=== PATIENT | male | born 1950 | race Caucasian/White ===

== ENCOUNTER 2018-01-18 16:56 | Emergency (ER) | payer MEDICARE, MEDICAID ==
[~2018-01-18] VITALS: Ht 180.3 cm; Wt 99.0 kg
[~2018-01-18 16:56] MED LIST: AMIT-106 PO; ASPI-1053 PO; CARV6.253 PO; DOXE25CA4 PO; HYDR-3972 PO; ICOS1CAP PO; METF-436 PO; ROSU20TA PO; TICA90TA2 PO
[2018-01-18] MEDS ORDERED: SULF1TAB49 PO (19:36)
[2018-01-18 19:44] VITALS: BP 125/85
== END 2018-01-18 19:45 | disposition home or self-care (01) ==
LOC: ER 16:56
DX: L08.9 Local infection of the skin and subcutaneous tissue, unspecified (principal); E11.42 Type 2 diabetes mellitus with diabetic polyneuropathy; I10 Essential (primary) hypertension; J44.9 Chronic obstructive pulmonary disease, unspecified; M19.90 Unspecified osteoarthritis, unspecified site; F12.90 Cannabis use, unspecified, uncomplicated; Z79.82 Long term (current) use of aspirin; Z98.890 Other specified postprocedural states; Z79.84 Long term (current) use of oral hypoglycemic drugs; Z79.899 Other long term (current) drug therapy
CPT/HCPCS: 99283

== ENCOUNTER 2018-10-09 16:01 | Emergency (ER) | payer MEDICARE, MEDICAID ==
[~2018-10-09] VITALS: Ht 182.9 cm; Wt 100.0 kg
[~2018-10-09 16:01] MED LIST changes: -ROSU20TA PO; +ROSU20TA2 PO
[2018-10-09 16:09] VITALS: BP 130/80
[2018-10-09 16:42] LABS: BASOPHILS # (AUTO) 0.1 X10'3 (0-0.2); BASOPHILS % (AUTO) 1.3 % (0-1); EOSINOPHILS # (AUTO) 0.3 X10'3 (0-0.9); HEMATOCRIT 40.7 % (42.0-52.0); LYMPHOCYTES % (AUTO) 16.5 % (21-51); MEAN CORPUSCULAR HEMOGLOBIN 33.3 PG (27.0-31.0); MEAN CORPUSCULAR HGB CONC 34.4 g/dL (33.0-36.5); MEAN CORPUSCULAR VOLUME 96.8 FL (78-98); MEAN PLATELET VOLUME 7.8 FL (7.4-10.4); MONOCYTES # (AUTO) 0.6 X10'3 (0-0.9); MONOCYTES % (AUTO) 10.6 % (2-12); NEUTROPHILS % (AUTO) 66.6 % (42-75); PLATELET COUNT 219 X10'3 (140-440); RED BLOOD COUNT 4.21 X10'6 (4.70-6.10); RED CELL DISTRIBUTION WIDTH 12.9 % (11.5-14.5)
[2018-10-09 16:55] LABS: PARTIAL THROMBOPLASTIN TIME 27 SECONDS (22-32); PROTHROMBIN TIME 10.6 SECONDS (9.0-12.0)
[2018-10-09 16:58] LABS: ALANINE AMINOTRANSFERASE 18 U/L (12-78); ALBUMIN 3.4 G/DL (3.4-5.0); ALBUMIN/GLOBULIN RATIO 0.9 (1.1-1.5); ALKALINE PHOSPHATASE 139 IU/L (46-116); ANION GAP 8 (8-16); ASPARTATE AMINO TRANSFERASE 14 U/L (10-37); BILIRUBIN,TOTAL 0.6 MG/DL (0.1-1.0); BLOOD UREA NITROGEN 21 MG/DL (7-18); BUN/CREATININE RATIO 29.6 (5.4-32.0); CALCIUM 9.3 MG/DL (8.5-10.1); CHLORIDE 104 MMOL/L (99-107); CREATININE 0.71 MG/DL (0.60-1.10); GLUCOSE 186 MG/DL (70-104); POTASSIUM 4.2 MMOL/L (3.5-5.1); SODIUM 138 MMOL/L (135-145); TOTAL CARBON DIOXIDE 25.6 MMOL/L (24-32); TOTAL PROTEIN 7.1 G/DL (6.4-8.2); eGFR > 90 ML/MIN
[2018-10-09] MEDS ORDERED: DOXY100C43 PO (17:12)
[2018-10-09] MEDS ORDERED: METH4TAB81 PO (17:12)
== END 2018-10-09 17:37 | disposition home or self-care (01) ==
LOC: ER 16:02
DX: J44.1 Chronic obstructive pulmonary disease with (acute) exacerbation (principal); I10 Essential (primary) hypertension; E11.42 Type 2 diabetes mellitus with diabetic polyneuropathy; M19.90 Unspecified osteoarthritis, unspecified site; F12.90 Cannabis use, unspecified, uncomplicated; Z79.82 Long term (current) use of aspirin
CPT/HCPCS: 36415; 71045; 80053; 84484; 85025; 85610; 85730; 93005; 99284

== ENCOUNTER 2019-05-01 14:52 | Emergency (ER) | payer MEDICARE, MEDICAID ==
[~2019-05-01] VITALS: Ht 182.9 cm; Wt 106.8 kg
[~2019-05-01 14:52] MED LIST changes: -AMIT-106 PO; +AMIT25TA9 PO; +METH4TAB81 PO
[2019-05-01 14:59] VITALS: BP 113/80
[2019-05-01 15:54] LABS: CLARITY,URINE CLEAR (Clear); COLOR,URINE YELLOW (Yellow); GLUCOSE, URINE 100 mg/dl (Neg); KETONES,URINE NEGATIVE (Neg); LEUKOCYTE ESTERASE ,URINE NEGATIVE (Neg); NITRITES, URINE NEGATIVE (Neg); OCCULT BLOOD,URINE NEGATIVE (Neg); PH,URINE 5.5 (4.8-8.0); PROTEIN,URINE NEGATIVE (Neg)
[2019-05-01 16:04] LABS: UA COLLECTION TYPE CLN CATCH MIDSTREAM
[2019-05-01] MEDS ORDERED: ketorolac tromethamine 15mg/ml inj. IM ONE (16:20)
== END 2019-05-01 18:25 | disposition home or self-care (01) ==
LOC: ER 14:52
DX: M54.5 Low back pain (principal); I25.10 Atherosclerotic heart disease of native coronary artery without angina pectoris; I10 Essential (primary) hypertension; J44.9 Chronic obstructive pulmonary disease, unspecified; M19.90 Unspecified osteoarthritis, unspecified site; F12.90 Cannabis use, unspecified, uncomplicated; E11.42 Type 2 diabetes mellitus with diabetic polyneuropathy; Z98.890 Other specified postprocedural states; Z79.82 Long term (current) use of aspirin; Z79.899 Other long term (current) drug therapy
CPT/HCPCS: 74176; 81003; 96372; 99284; J1885

== ENCOUNTER 2022-04-27 11:12 | Emergency (ER) | payer MEDICARE, MEDICAID ==
[~2022-04-27] VITALS: Ht 177.8 cm; Wt 118.2 kg
[2022-04-27 12:07] VITALS: BP 159/94
== END 2022-04-27 16:03 | disposition home or self-care (01) ==
LOC: ER 11:12
DX: R05.9 Cough, unspecified (principal); Z20.822 Contact with and (suspected) exposure to COVID-19; R07.89 Other chest pain; R06.02 Shortness of breath; E11.42 Type 2 diabetes mellitus with diabetic polyneuropathy; I25.10 Atherosclerotic heart disease of native coronary artery without angina pectoris; I10 Essential (primary) hypertension; J44.9 Chronic obstructive pulmonary disease, unspecified; M19.90 Unspecified osteoarthritis, unspecified site; F41.9 Anxiety disorder, unspecified; F12.90 Cannabis use, unspecified, uncomplicated; Z72.89 Other problems related to lifestyle; Z98.890 Other specified postprocedural states; Z79.82 Long term (current) use of aspirin; Z79.899 Other long term (current) drug therapy
CPT/HCPCS: 36415; 71046; 87635; 99284; C9803

== ENCOUNTER 2023-02-05 03:12 | Emergency (ER) | payer BC, MEDICAID ==
[~2023-02-05] VITALS: Ht 177.8 cm; Wt 96.0 kg
[2023-02-05 03:31] VITALS: TEMP 98
[2023-02-05] MEDS ORDERED: LIDOcaine 1% W/epiNEPHrine 1:100,000 20ml vial IJ ONE (03:45)
[2023-02-05] MEDS ORDERED: ALBU18HF2 PO (03:49)
[2023-02-05] MEDS ORDERED: DULA0.75 SQ (03:49)
[2023-02-05] MEDS ORDERED: FLUT16SP26 (03:49)
[2023-02-05] MEDS ORDERED: FEXO-310 PO (03:49)
[2023-02-05] MEDS ORDERED: MONT-40 PO (03:49)
[2023-02-05] MEDS ORDERED: ketorolac trometh inj. 60 MG/2 ML VIAL IM ONE (03:50)
[2023-02-05] MEDS ORDERED: acetaminophen 325mg tablet PO ONE (03:50)
[2023-02-05 04:19] VITALS: BP 155/90; PULSE 70; RESP 18; O2SAT 98
== END 2023-02-05 04:21 | disposition home or self-care (01) ==
LOC: ER 03:13
DX: M43.6 Torticollis (principal)
CPT/HCPCS: 20552; 96372; 99284; J1885

== ENCOUNTER 2023-06-22 02:43 | Emergency (ER) | payer BC, MEDICAID ==
[~2023-06-22] VITALS: Ht 182.9 cm; Wt 85.5 kg
[~2023-06-22 02:43] MED LIST changes: +ALBU18HF2 PO; -AMIT25TA9 PO; -DOXE25CA4 PO; +DULA0.75 SQ; +FEXO-310 PO; +FLUT16SP26; -HYDR-3972 PO; -METH4TAB81 PO; +MONT-40 PO
[2023-06-22 02:44] VITALS: BP 143/85; PULSE 77; TEMP 97.9; O2SAT 99
[2023-06-22] MEDS ORDERED: ketorolac trometh inj. 60 MG/2 ML VIAL IM ONE (03:15)
[2023-06-22] MEDS ORDERED: acetaminophen 325mg tablet PO ONE (03:15)
[2023-06-22] MEDS ORDERED: IBUP-1984 PO (03:24)
[2023-06-22] MEDS ORDERED: ACET-1025 PO (03:24)
[2023-06-22 03:44] VITALS: RESP 18
== END 2023-06-22 03:46 | disposition home or self-care (01) ==
LOC: ER 02:43
DX: M43.6 Torticollis (principal); I11.0 Hypertensive heart disease with heart failure; J44.9 Chronic obstructive pulmonary disease, unspecified; E11.9 Type 2 diabetes mellitus without complications; F41.9 Anxiety disorder, unspecified; Z79.899 Other long term (current) drug therapy
CPT/HCPCS: 96372; 99283; J1885

== ENCOUNTER 2023-08-03 08:13 | Day surgery (SDC) | payer BC, MEDICAID ==
[2023-07-28 14:16] LABS: BASOPHILS % (AUTO) 0.6 % (0-1); EOSINOPHILS # (AUTO) 0.2 X10'3 (0-0.9); EOSINOPHILS % (AUTO) 2.8 % (0-6); LYMPHOCYTES # (AUTO) 1.1 X10'3 (1.1-4.8); LYMPHOCYTES % (AUTO) 18.6 % (21-51); MEAN CORPUSCULAR HEMOGLOBIN 33.9 PG (27.0-31.0); MEAN CORPUSCULAR HGB CONC 33.7 g/dL (33.0-36.5); MEAN CORPUSCULAR VOLUME 100.6 FL (78-98); MEAN PLATELET VOLUME 8.2 FL (7.4-10.4); MONOCYTES # (AUTO) 0.6 X10'3 (0-0.9); MONOCYTES % (AUTO) 10.3 % (2-12); NEUTROPHILS # (AUTO) 4.1 X10'3 (1.8-7.7); NEUTROPHILS % (AUTO) 67.7 % (42-75); PRE OP HEMATOCRIT 41.5 % (42.0-52.0); PRE OP PLATELET COUNT 162 X10'3 (140-440); PRE OP WHITE BLOOD COUNT 6.1 10'3 (4.8-10.8); RED BLOOD COUNT 4.12 X10'6 (4.70-6.10); RED CELL DISTRIBUTION WIDTH 12.9 % (11.5-14.5)
[2023-07-28 14:24] LABS: BILIRUBIN,URINE NEGATIVE (Neg); CLARITY,URINE CLEAR (Clear); COLOR,URINE YELLOW (Yellow); GLUCOSE, URINE NEGATIVE (Neg); KETONES,URINE NEGATIVE (Neg); LEUKOCYTE ESTERASE ,URINE NEGATIVE (Neg); NITRITES, URINE NEGATIVE (Neg); OCCULT BLOOD,URINE NEGATIVE (Neg); PROTEIN,URINE NEGATIVE (Neg); UROBILINOGEN,URINE 0.2 E.U/dL (0.2-1.0)
[2023-07-28 14:27] LABS: PRE OP PROTIME 11.1 SECONDS (9.0-12.0)
[2023-07-28 14:28] LABS: ALBUMIN 3.6 G/DL (3.4-5.0); ALBUMIN/GLOBULIN RATIO 0.9 (1.1-1.5); ALKALINE PHOSPHATASE 96 IU/L (46-116); BLOOD UREA NITROGEN 16 MG/DL (7-18); BUN/CREATININE RATIO 23.2 (10.0-20.0); CALCIUM 9.6 MG/DL (8.5-10.1); CHLORIDE 101 MMOL/L (99-107); CREATININE 0.69 MG/DL (0.60-1.10); PRE OP ALT 23 U/L (30-65); PRE OP ANION GAP 8 (8-16); PRE OP AST 27 U/L (10-37); PRE OP BILIRUB, TOTAL 0.5 MG/DL (0.0-1.0); PRE OP GLUCOSE 79 MG/DL (70-104); PRE OP POTASSIUM 4.1 MMOL/L (3.4-5.1); PRE OP SODIUM 140 MMOL/L (135-145); TOTAL CARBON DIOXIDE 31.5 MMOL/L (24-32); TOTAL PROTEIN 7.5 G/DL (6.4-8.2); eGFR > 90 ML/MIN
[2023-07-28 14:34] LABS: UA COLLECTION TYPE CLN CATCH MIDSTREAM
[2023-07-28 14:45] LABS: HEMOGLOBIN A1C 5.6 % (4.5-6.2)
[2023-08-03] VITALS (28 sets, daily range): BP systolic 72–146; BP diastolic 51–100; PULSE 67–92; RESP 12–21; TEMP 97.6–99.8; O2SAT 89–98
[~2023-08-03] VITALS: Ht 180.3 cm; Wt 81.7 kg
[~2023-08-03 08:13] MED LIST changes: +BUDE10.2 INH; +CARV3.122 PO; -CARV6.253 PO; +DOCUMENT DATE & TIME OF BETA-BLOCKER PO ONE; -FEXO-310 PO; -FLUT16SP26; +FLUT16SP26 BOTHNARES; +LIDOcaine 1%/PF 5ML 10 MG/ML VIAL ONE; +LIDOcaine 2% (20mg/ml) 5ml vial ONE; +MULT-1085 PO; +ROPIVAcaine 0.5% (5mg/ml) 30ml vial ONE; +TICA60TA PO; -TICA90TA2 PO; +ZINC220T3 PO; +acetaminophen 325mg tablet PO PRN; +bisacodyl 10mg suppository rectal RC PRN; +cefazolin 2gm/D5W 100mL 100 ML IV ONE; +cefazolin 2gm/D5W 100mL 100 ML IV SCH; +cloNIDine hcl/PF 100mcg/ml inj ONE; +dexamethasone sod phosphate 4mg/ml inj. ONE; +diphenhydrAMINE 25mg capsule PO PRN; +famotidine 20mg tablet PO ONE; +fentaNYL/PF 50MCG/1 ML 2ML syringe ONE; +magnesium hydroxide 30ml (MOM) UD suspension PO PRN; +midazolam 1 mg/ML 2ml injection ONE; +naloxone 0.4 mg/ml inj IV PRN; +ondansetron/PF 4mg/2ml inj IV PRN; +ondansetron/PF 4mg/2ml inj ONE; +oxyCODONE/APAP 5-325mg tablet PO PRN; +propofol inj 20 ML IV ONE; +ringers solution, lacted 1,000 ML IV SCH; +rocuronium 10mg/ml inj IV ONE; +sevoflurane 250ml liquid IH ONE; +tranexamic acid inj. 1,000 MG in normal saline IV soln 100ML IV ONE; +vancomycin 1,000mg inj ONE
[2023-08-03] MEDS ORDERED: neostigmine methylsulfate 1 MG/ML 10ml vial ONE (09:45)
[2023-08-03] MEDS ORDERED: glycopyrrolate 0.2mg/ml inj ONE (09:45)
[2023-08-03] MEDS ORDERED: morphine 10mg/ml inj. ONE (09:45)
[2023-08-03] MEDS ORDERED: ondansetron/PF 4mg/2ml inj IV PRN (10:00)
[2023-08-03] MEDS ORDERED: ringers solution, lacted 1,000 ML IV SCH (10:00)
[2023-08-03] MEDS ORDERED: hydrALAZINE 20mg/ml inj. IV PRN (10:00)
[2023-08-03] MEDS ORDERED: morphine 4 MG/ML inj SYRINge IV PRN (10:00)
[2023-08-03] MEDS ORDERED: acetaminophen 1,000mg/100ml IV 100 ML IV ONE ×2 (10:00→10:50)
[2023-08-03] MEDS ORDERED: proCHLORperazine 10 MG/2 ml inj IV PRN (10:00)
[2023-08-03] MEDS ORDERED: morphine 2 MG/ML inj. syringe IV PRN (10:00)
[2023-08-03] MEDS ORDERED: meperidine/PF 25mg/ml syringe IV PRN ×3 (10:00)
[2023-08-03] MEDS ORDERED: labetalol 20mg/4ml (5mg/ml) syringe IV PRN (10:00)
[2023-08-03] MEDS ORDERED: non-formulary drug (Budesonide/Formoterol Fumarate (Symbicort 160-4.5 Mcg Inhaler) 2 PUFF) INH PRN (15:35)
[2023-08-03] MEDS ORDERED: fluticasone nasal spray 16GM bottle NS PRN (15:35)
[2023-08-03] MEDS ORDERED: albuterol 2.5 MG/3 ML nebule NEB PRN (15:35)
[2023-08-03] MEDS: oxyCODONE/APAP 5-325mg tablet PO PRN ×2 (15:37→22:05)
[2023-08-03] MEDS ORDERED: Dulaglutide (Trulicity) 0.5 ML INJ SQ SCH (15:50)
[2023-08-03] MEDS: potassium cl 20mEq in 1/2 NS 1,000 ML IV SCH ×2 (16:25→21:21)
[2023-08-03] MEDS: cefazolin 2gm/D5W 100mL 100 ML IV SCH (16:27)
[2023-08-03] MEDS: carVEDilol 3.125mg tablet PO SCH (19:54)
[2023-08-03] MEDS: budesonide 0.5mg/2ml UD nebule IH SCH (19:55)
[2023-08-03] MEDS: albuterol 2.5 MG/3 ML nebule NEB SCH (19:56)
[2023-08-03] MEDS ORDERED: ICOSAPENT ETHYL 1 GM PO SCH (20:00)
[2023-08-03] MEDS ORDERED: montelukast 10mg tablet PO SCH (21:00)
[2023-08-03] MEDS ORDERED: ROSUVASTATIN CALCIUM 5 MG TABLET PO SCH (21:00)
[2023-08-04] MEDS: cefazolin 2gm/D5W 100mL 100 ML IV SCH (00:33)
[2023-08-04 02:00] VITALS: BP 102/66; PULSE 75; RESP 17; TEMP 97.6; O2SAT 97
[2023-08-04] MEDS: albuterol 2.5 MG/3 ML nebule NEB SCH ×2 (03:00→09:20)
[2023-08-04 03:15] VITALS: PULSE 77; RESP 16; O2SAT 97
[2023-08-04] MEDS: oxyCODONE/APAP 5-325mg tablet PO PRN ×2 (03:38→09:22)
[2023-08-04 06:00] VITALS: BP 110/62; PULSE 70; RESP 15; TEMP 97.2; O2SAT 96
[2023-08-04 06:07] LABS: BASOPHILS % (AUTO) 0.2 % (0-1); EOSINOPHILS % (AUTO) 0 % (0-6); HEMATOCRIT 33.3 % (42.0-52.0); HEMOGLOBIN 11.3 g/dl (14.0-17.9); LYMPHOCYTES # (AUTO) 0.8 X10'3 (1.1-4.8); LYMPHOCYTES % (AUTO) 7.8 % (21-51); MEAN CORPUSCULAR HEMOGLOBIN 33.9 PG (27.0-31.0); MEAN CORPUSCULAR VOLUME 99.8 FL (78-98); MEAN PLATELET VOLUME 7.9 FL (7.4-10.4); MONOCYTES # (AUTO) 1.3 X10'3 (0-0.9); NEUTROPHILS # (AUTO) 8.5 X10'3 (1.8-7.7); PLATELET COUNT 162 X10'3 (140-440); RED BLOOD COUNT 3.34 X10'6 (4.70-6.10); RED CELL DISTRIBUTION WIDTH 12.3 % (11.5-14.5); WHITE BLOOD COUNT 10.7 X10'3 (4.5-11.0)
[2023-08-04 06:14] LABS: ANION GAP 8 (8-16); CHLORIDE 100 MMOL/L (99-107); POTASSIUM 4.1 MMOL/L (3.5-5.1); SODIUM 135 MMOL/L (135-145); TOTAL CARBON DIOXIDE 27.5 MMOL/L (24-32)
[2023-08-04] MEDS ORDERED: metFORMIN 500mg tablet PO SCH (08:00)
[2023-08-04] MEDS ORDERED: multivitamins, therapeutics tablet PO SCH (08:00)
[2023-08-04] MEDS ORDERED: zinc sulfate 220mg capsule PO SCH (08:00)
[2023-08-04] MEDS ORDERED: aspirin 81mg tab.chew PO SCH (08:00)
[2023-08-04] MEDS: budesonide 0.5mg/2ml UD nebule IH SCH (09:20)
[2023-08-04 09:21] VITALS: PULSE 71; RESP 18; O2SAT 98
[2023-08-04] MEDS: carVEDilol 3.125mg tablet PO SCH (09:22)
[2023-08-04 09:30] VITALS: PULSE 81; RESP 16
[2023-08-07] MEDS ORDERED: Dulaglutide (Trulicity) 0.5 ML INJ SQ SCH (16:45)
== END 2023-08-04 11:05 | disposition home or self-care (01) ==
LOC: PAS 08:13 → ORTHO 4S 08:14 → PAS 08-04 11:05
PROVIDERS: ATTEND Specialist
DX: M19.012 Primary osteoarthritis, left shoulder (principal); M75.102 Unspecified rotator cuff tear or rupture of left shoulder, not specified as traumatic; E78.5 Hyperlipidemia, unspecified; E11.10 Type 2 diabetes mellitus with ketoacidosis without coma; I25.10 Atherosclerotic heart disease of native coronary artery without angina pectoris; I25.2 Old myocardial infarction; I10 Essential (primary) hypertension; E11.42 Type 2 diabetes mellitus with diabetic polyneuropathy; F41.9 Anxiety disorder, unspecified; F32.A Depression, unspecified; J43.9 Emphysema, unspecified; F12.90 Cannabis use, unspecified, uncomplicated; M41.9 Scoliosis, unspecified; G89.18 Other acute postprocedural pain; Z98.890 Other specified postprocedural states; Z72.89 Other problems related to lifestyle; Z79.899 Other long term (current) drug therapy; Z79.82 Long term (current) use of aspirin; Z79.84 Long term (current) use of oral hypoglycemic drugs; Z95.5 Presence of coronary angioplasty implant and graft; Z87.891 Personal history of nicotine dependence; Z88.8 Allergy status to other drugs, medicaments and biological substances; Z79.01 Long term (current) use of anticoagulants
CPT/HCPCS: 23472; 36415; 64415; 73030; 80051; 80053; 81003; 82948; 83036; 85025; 85610; 85730; 86885; 86900; 86901; 87081; 94640; 94760; 97161; C1776; J0131; J0690; J0735; J1100; J2250; J2274; J2405; J2704; J2710; J2795; J3010; J3370; J3480; J3490; J7030; J7120; Z7506; Z7508; Z7512; 97530; A4565; A4618; A6449; A6455; A7000; G0378

== ENCOUNTER 2024-04-02 02:20 | Emergency (ER) | payer BC, MEDICAID ==
[~2024-04-02] VITALS: Ht 177.8 cm; Wt 77.3 kg
[~2024-04-02 02:20] MED LIST changes: -DOCUMENT DATE & TIME OF BETA-BLOCKER PO ONE; -LIDOcaine 1%/PF 5ML 10 MG/ML VIAL ONE; -LIDOcaine 2% (20mg/ml) 5ml vial ONE; -ROPIVAcaine 0.5% (5mg/ml) 30ml vial ONE; -acetaminophen 325mg tablet PO PRN; -bisacodyl 10mg suppository rectal RC PRN; -cefazolin 2gm/D5W 100mL 100 ML IV ONE; -cefazolin 2gm/D5W 100mL 100 ML IV SCH; -cloNIDine hcl/PF 100mcg/ml inj ONE; -dexamethasone sod phosphate 4mg/ml inj. ONE; -diphenhydrAMINE 25mg capsule PO PRN; -famotidine 20mg tablet PO ONE; -fentaNYL/PF 50MCG/1 ML 2ML syringe ONE; -magnesium hydroxide 30ml (MOM) UD suspension PO PRN; -midazolam 1 mg/ML 2ml injection ONE; -naloxone 0.4 mg/ml inj IV PRN; -ondansetron/PF 4mg/2ml inj IV PRN; -ondansetron/PF 4mg/2ml inj ONE; -oxyCODONE/APAP 5-325mg tablet PO PRN; -propofol inj 20 ML IV ONE; -ringers solution, lacted 1,000 ML IV SCH; -rocuronium 10mg/ml inj IV ONE; -sevoflurane 250ml liquid IH ONE; -tranexamic acid inj. 1,000 MG in normal saline IV soln 100ML IV ONE; -vancomycin 1,000mg inj ONE
[2024-04-02] MEDS: ketorolac trometh 30MG/ML vial 30 MG/ML VIAL IM ONE (03:53)
[2024-04-02] MEDS: diazepam 5mg tablet PO ONE (05:03)
[2024-04-02 05:09] VITALS: BP 131/77; PULSE 64; RESP 18; TEMP 98.3; O2SAT 99
== END 2024-04-02 05:11 | disposition home or self-care (01) ==
LOC: ER 02:21
DX: M43.6 Torticollis (principal); M54.2 Cervicalgia; M62.838 Other muscle spasm; E11.42 Type 2 diabetes mellitus with diabetic polyneuropathy; I25.10 Atherosclerotic heart disease of native coronary artery without angina pectoris; I10 Essential (primary) hypertension; J44.9 Chronic obstructive pulmonary disease, unspecified; M19.90 Unspecified osteoarthritis, unspecified site; F41.9 Anxiety disorder, unspecified; F12.90 Cannabis use, unspecified, uncomplicated; Z79.82 Long term (current) use of aspirin; Z79.899 Other long term (current) drug therapy
CPT/HCPCS: 96372; 99283; J1885